=== PATIENT | female | born 1940 | race Caucasian/White ===

== ENCOUNTER → 2016-09-21 | Outpatient (CLI) | payer MEDICARE, BC ==
[~2016-09-21] MED LIST: CALCIUM CITRAT200 MG PO; DICLOFENAC; GLUCOSAMINE & C1 CAP PO; PREFEST PO
== END ==
LOC: MC.RAD 09-20 07:00
DX: Z12.31 Encounter for screening mammogram for malignant neoplasm of breast (principal)

== ENCOUNTER 2021-06-08 09:39 | Emergency (ER) | payer MEDICARE, BC ==
[~2021-06-08] VITALS: Ht 160 cm; Wt 63.6 kg
[2021-06-08 09:50] VITALS: TEMP 98.5
[2021-06-08 10:08] LABS: BASO % 0.1 % (0.0-2.0); EOS % 0.2 % (0.0-4.0); GRAN # 6.3 K/mm3 (1.4-6.5); GRAN % 77.1 % (42.2-75.2); HEMATOCRIT 38.1 % (37.0-47.0); HEMOGLOBIN 12.9 g/dl (12.5-16.0); LYMPH # 0.9 K/mm3 (1.2-3.4); LYMPH % 10.4 % (20.0-51.0); MEAN CELL VOLUME 89 fl (80.0-100.0); MEAN CORPUSCULAR HEMOGLOBIN 30 pg (27-31); MEAN CORPUSCULAR HGB CONC 34 g/dl (33.0-37.0); MEAN PLATELET VOLUME 10.2 fl (7.4-10.4); PLATELET COUNT 268 K/mm3 (130-400); REDCELL DISTRIBUTION WIDTH-CV 12.7 % (11.5-14.5)
[2021-06-08 10:31] LABS: ALBUMIN 3.6 gm/dL (3.4-4.8); ALKALINE PHOSPHATASE 52 U/L (40-150); ANION GAP 13 mmol/L (7-16); AST,SGOT 11 U/L (5-34); BILIRUBIN,TOTAL 0.7 mg/dL (0.2-1.2); BLOOD UREA NITROGEN 14 mg/dL (10-20); CALCIUM 9.3 mg/dL (8.4-10.2); CARBON DIOXIDE 23 mmol/L (23-31); CHLORIDE 104 mmol/L (98-107); GLUCOSE 117 mg/dL (70-99); POTASSIUM 3.6 mmol/L (3.5-4.5); SODIUM 140 mmol/L (136-145); TOTAL PROTEIN 7.6 gm/dL (6.2-8.1)
[2021-06-08 10:32] LABS: ALANINE AMINOTRANSFERASE < 6 U/L (0-55)
[2021-06-08 10:53] LABS: COLLECTION METHOD CLEAN CATCH
[2021-06-08 11:00] LABS: MUCOUS Present (NOT PRESENT); PH 5 (5-8); SQUAMOUS EPITHELIAL 0-2 /hpf (0-10); URINE APPEARANCE Hazy (CLEAR/HAZY); URINE BACTERIA None Seen (NONE SEEN); URINE BILIRUBIN Negative (NEGATIVE); URINE BLOOD Negative (NEGATIVE); URINE COLOR Amber (YELLOW); URINE GLUCOSE Negative (NEGATIVE); URINE KETONE Trace (NEGATIVE); URINE LEUKOCYTE ESTERASE Negative (NEGATIVE); URINE NITRATE Negative (NEGATIVE); URINE PROTEIN(semi-quant) 2+ (NEGATIVE); URINE RBC 0-2 /hpf (0-2)
[2021-06-08 12:05] VITALS: BP 156/65; PULSE 70
[2021-06-22] MEDS ORDERED: ALDACTONE50 MG PO (12:14)
[2021-06-22] MEDS ORDERED: APRESOLINE 25MG25 MG PO (12:15)
[2021-06-22] MEDS ORDERED: ARICEPT 5MG PO (12:16)
[2021-06-22] MEDS ORDERED: COZAAR 50MG50 MG/TAB PO (12:17)
[2021-06-22] MEDS ORDERED: NAMENDA5 MG PO (12:17)
[2021-06-22] MEDS ORDERED: NEURONTIN100 MG/CAP PO (12:18)
== END 2021-06-08 12:05 | disposition home or self-care (01) ==
LOC: COL.ER 09:39
PROVIDERS: Family Medicine
DX: R41.82 Altered mental status, unspecified (principal)

== ENCOUNTER → 2021-06-22 | Outpatient (CLI) | payer MEDICARE, BC ==
[~2021-06-22] VITALS: Ht 160 cm; Wt 57.4 kg
[~2021-06-22] MED LIST changes: +ALDACTONE50 MG PO; +APRESOLINE 25MG25 MG PO; +ARICEPT 5MG PO; +COZAAR 50MG50 MG/TAB PO; +NAMENDA5 MG PO; +NEURONTIN100 MG/CAP PO
[2021-06-22 12:19] VITALS: BP 142/66; PULSE 94; TEMP 98
[2021-06-22 13:45] VITALS: BP 146/82; PULSE 90
== END ==
LOC: COL.RAD 11:56
DX: M47.26 Other spondylosis with radiculopathy, lumbar region (principal)
CPT/HCPCS: J3301

== ENCOUNTER 2021-10-14 09:57 | Inpatient (IN) | payer MEDICARE, BC ==
[~2021-10-14] VITALS: Ht 160 cm; Wt 58.0 kg
[~2021-10-14 09:57] MED LIST changes: +NAMENDA 10MG TA10 MG PO; -NAMENDA5 MG PO
[2021-10-14] MEDS ORDERED: HYGROTON 2525 MG/TAB PO (10:19)
[2021-10-14] MEDS ORDERED: PREDNISONE10 MG PO (10:22)
[2021-10-14] MEDS ORDERED: ARICEPT10 MG PO (10:25)
[2021-10-14] MEDS ORDERED: PRILOSEC 20MG20 MG PO (10:27)
[2021-10-14 10:50] LABS: COLLECTION METHOD CATHETER
[2021-10-14 10:54] LABS: HEMOGLOBIN 11.9 g/dl (12.5-16.0); MEAN CELL VOLUME 94 fl (80.0-100.0); MEAN CORPUSCULAR HEMOGLOBIN 31 pg (27-31); MEAN CORPUSCULAR HGB CONC 33 g/dl (33.0-37.0); MEAN PLATELET VOLUME 9.6 fl (7.4-10.4); PLATELET COUNT 242 K/mm3 (130-400); RED BLOOD COUNT 3.82 M/mm3 (4.10-5.30); REDCELL DISTRIBUTION WIDTH-CV 14.5 % (11.5-14.5)
[2021-10-14 10:56] LABS: MUCOUS Present (NOT PRESENT); PH 6 (5-8); SQUAMOUS EPITHELIAL 0-2 /hpf (0-10); URINE APPEARANCE Clear (CLEAR/HAZY); URINE BACTERIA None Seen /hpf (NONE SEEN); URINE BILIRUBIN Negative (NEGATIVE); URINE BLOOD Negative (NEGATIVE); URINE COLOR Yellow (YELLOW); URINE GLUCOSE Negative (NEGATIVE); URINE KETONE Negative (NEGATIVE); URINE LEUKOCYTE ESTERASE Negative (NEGATIVE); URINE NITRATE Negative (NEGATIVE); URINE PROTEIN(semi-quant) Negative (NEGATIVE); URINE RBC 0-2 /hpf (0-2)
[2021-10-14 10:56] LABS: HEMATOCRIT 35.7 % (37.0-47.0)
[2021-10-14 11:15] LABS: BAND 3 % (0-10); EOSINOPHIL 1 % (0-4); LYMPHOCYTE 8 % (20.0-51.0); MYELOCYTE 1 % (0-0); NEUTROPHILS 83 % (42.0-75.2)
[2021-10-14 11:16] LABS: PLATELET ESTIMATE NORMAL (NORMAL); POLYCHROMASIA 1+
[2021-10-14 12:32] LABS: ALBUMIN 2.7 gm/dL (3.4-4.8); BILIRUBIN,TOTAL 0.4 mg/dL (0.2-1.2); CALCIUM 9.2 mg/dL (8.4-10.2); CREATININE, serum 0.81 mg/dL (0.57-1.11); POTASSIUM 3.6 mmol/L (3.5-4.5); TOTAL PROTEIN 6.4 gm/dL (6.2-8.1)
[2021-10-14 15:49] VITALS: BP 149/53; PULSE 77; TEMP 97.7
[2021-10-14] MEDS ORDERED: VITAMIND3 5000 PO (16:06)
--- NOTE | 2021-10-14 19:10 | NUR ---
Pt arrived to the unit, A/O x4 but very forgetful asking same question several times. Denies any pain. Fall precautions in place. Call light within reach.
[2021-10-14 20:16] VITALS: BP 125/49; PULSE 74; TEMP 98.5
[2021-10-14 23:30] VITALS: BP 123/50; PULSE 68; TEMP 98.3
[2021-10-15 04:28] VITALS: BP 125/55; PULSE 72; TEMP 98
--- NOTE | 2021-10-15 06:35 | NUR ---
ASSESSMENT COMPLETE FOR THIS SHIFT, PT RESTING IN BED WATCHING TV. PT DENIED PAIN, PALPITATIONS, N,V,D, SOB OR DIZZINESS. PT WAS A&O X 4 FOR ME. PT WAS ABLE TO TELL ME HER NAME, , THAT SHE WAS IN THE HOSPITAL AND THE YEAR AND MONTH (SHE DID JOKE AT FIRST ABOUT THE YEAR BEING 2221, THEN SHE SAID SHE WAS KIDDING, THAT IT WAS 2021, AND THAT THE MONTH WAS NOVEMBER, THEN SHE SAID, "NO WAIT...IT SEPTEMBER). PT EXPRESSED NO OTHER NEEDS AT THIS TIME. CALL LIGHT WITHIN REACH.
[2021-10-15 06:38] LABS: HEMOGLOBIN 11.3 g/dl (12.5-16.0); MEAN CELL VOLUME 94 fl (80.0-100.0); MEAN CORPUSCULAR HEMOGLOBIN 31 pg (27-31); MEAN CORPUSCULAR HGB CONC 33 g/dl (33.0-37.0); MEAN PLATELET VOLUME 9.7 fl (7.4-10.4); PLATELET COUNT 249 K/mm3 (130-400); REDCELL DISTRIBUTION WIDTH-CV 14.3 % (11.5-14.5)
[2021-10-15 06:40] LABS: HEMATOCRIT 34.7 % (37.0-47.0)
[2021-10-15 06:50] LABS: CREATININE, serum 0.85 mg/dL (0.57-1.11); POTASSIUM 3.6 mmol/L (3.5-4.5)
[2021-10-15 06:57] LABS: TROPONIN-I 0.022 ng/mL (0.00-0.033)
[2021-10-15 07:15] LABS: BAND 1 % (0-10); EOSINOPHIL 1 % (0-4); LYMPHOCYTE 15 % (20.0-51.0); NEUTROPHILS 77 % (42.0-75.2); PLATELET ESTIMATE NORMAL (NORMAL)
[2021-10-15 07:16] LABS: HYPOCHROMIA 1+
[2021-10-15 07:40] VITALS: BP 130/45; PULSE 77; TEMP 98.1
--- NOTE | 2021-10-15 10:39 | NUR ---
Scheduled medications given. Shift assessment performed. Patient alert, but only paritially oriented. Remainder on neuro assessment WNL. VSS. Patient denies any pain, discomfort, SOA, or further needs at this time. Call light in reach. Fall percautions in place. Tele on. at the bedside.
--- NOTE | 2021-10-15 11:03 | NUR ---
paper and pulp mill worker met with patient to discuss discharge plan. Patient reports that she lives at home with her in [place]. She states that she is able to complete her ADL's on her own and utilizes a rollator walker to assist with mobility. Patient reports that she has no home oxygen needs. Patient currently has home health services established with [facility]. PCP is . She is unsure of what pharmacy she gets her medications from stating " im not the one that picks them up". Patient reports that she does have a DPOA-HC listing her daughter Nadia [phone] as her agent. At this time, the patient is planning on returning home however PT/OT need to eval her first. Discharge plan: Home; pending PT/OT eval
[2021-10-15 11:40] VITALS: BP 127/47; PULSE 86; TEMP 98
--- NOTE | 2021-10-15 13:39 | NUR ---
Iniital visit; Patient thanked Php Developer for looking in on her and offering God's blessings and to keep her in Php Developer's prayers. Patient's and daughter were with her.
[2021-10-15 15:48] VITALS: BP 123/51; PULSE 93; TEMP 98.1
--- NOTE | 2021-10-15 19:29 | NUR ---
Patient has had an uneventful day. VSS. Patient alert, but only paritially oriented. Remainder of neuro checks WNL. Patient denies any pain, discomfort, SOA, or further needs at this time. Call light in reach. Fall percautions in place.
[2021-10-15 20:10] VITALS: BP 113/50; PULSE 91; TEMP 99.2
[2021-10-15 21:50] VITALS: BP 123/57; PULSE 97
[2021-10-16] VITALS (7 sets, daily range): BP systolic 89–125; BP diastolic 39–96; PULSE 78–101; TEMP 97.7–98.7
--- NOTE | 2021-10-16 05:07 | NUR ---
ASSESSMENT COMPLETE FOR THIS SHIFT. PT RESTING IN BED WATCHING TV. PT COMPLAINED OF WEAKNESS. PT WAS INCONTINENT OF BOWEL A COUPLE OF TIMES TONIGHT. PT FELT SHE WAS TOO WEAK TO GET UP TO THE BEDSIDE COMMODE. WE WERE ABLE TO GET HER UP ONCE TONIGHT TO THE BEDSIDE COMMODE. PT DENIED PAIN, PALPITATIONS, SOB, N,V, OR DIZZINESS. PT YELLED OUT FOR HELP A COUPLE OF TIME. PT REMINDED TO USE THE CALL LIGHT. PT EXPRESSED NO OTHER NEEDS AT THIS TIME. CALL LIGHT WITHIN REACH.
[2021-10-16 06:34] LABS: HEMOGLOBIN 11.2 g/dl (12.5-16.0); MEAN CELL VOLUME 94 fl (80.0-100.0); MEAN CORPUSCULAR HEMOGLOBIN 31 pg (27-31); MEAN CORPUSCULAR HGB CONC 33 g/dl (33.0-37.0); MEAN PLATELET VOLUME 9.8 fl (7.4-10.4); PLATELET COUNT 281 K/mm3 (130-400); RED BLOOD COUNT 3.62 M/mm3 (4.10-5.30); REDCELL DISTRIBUTION WIDTH-CV 14.3 % (11.5-14.5)
[2021-10-16 06:47] LABS: CREATININE, serum 1.05 mg/dL (0.57-1.11); MAGNESIUM 1.7 mg/dL (1.6-2.6); POTASSIUM 4.1 mmol/L (3.5-4.5)
[2021-10-16 07:53] LABS: BAND 6 % (0-10); LYMPHOCYTE 14 % (20.0-51.0); METAMYELOCYTE 1 % (0-0); NEUTROPHILS 73 % (42.0-75.2)
[2021-10-16 07:54] LABS: PLATELET ESTIMATE NORMAL (NORMAL)
--- NOTE | 2021-10-16 11:46 | NUR ---
Shift assessment performed. Scheduled medications given. Patient alert, but only partially oriented. BP medications held due to low BP. Provider aware. Patient currently on RA. Denies any pain, discomfort, SOA, or further needs at this time. Call light in reach. Tele on. KAUSHIK hose in use. Fall percaution in place. Family at the bedside.
--- NOTE | 2021-10-16 14:30 | NUR ---
Social Work student faxed SNF referrals to Katie at [facility], Thony at [facility], and Sherrill at [facility].
--- NOTE | 2021-10-16 14:43 | NUR ---
lasting floorworker met with patient to discuss PT/OT recommending SNF before returing home. Patient verbalizes that she would really like for me to reach out to her daughter Nadai to discuss the differenet options in facilities. This SW attempted to reach [facility] and message left. Clinical referrals faxed to [facility], [facility] and [facility]. Discharge plan: SNf; referrals pending
--- NOTE | 2021-10-16 19:11 | NUR ---
Patient has had an uneventful day. VSS. Patinet Alert and partially oriented. Call light in reach. Fall percautions in place. Patient denies any pain, discomfort, SOA, or further needs at this time. Call light in reach.
[2021-10-17 00:17] VITALS: BP 115/50; PULSE 66; TEMP 97.6
[2021-10-17 03:39] VITALS: BP 113/46; PULSE 72; TEMP 97.4
[2021-10-17 07:02] LABS: MEAN CELL VOLUME 94 fl (80.0-100.0); MEAN CORPUSCULAR HEMOGLOBIN 31 pg (27-31); MEAN CORPUSCULAR HGB CONC 33 g/dl (33.0-37.0); MEAN PLATELET VOLUME 9.7 fl (7.4-10.4); PLATELET COUNT 286 K/mm3 (130-400); RED BLOOD COUNT 3.54 M/mm3 (4.10-5.30); REDCELL DISTRIBUTION WIDTH-CV 14.1 % (11.5-14.5)
[2021-10-17 07:08] LABS: HEMATOCRIT 33.3 % (37.0-47.0)
[2021-10-17 07:18] LABS: CREATININE, serum 1.03 mg/dL (0.57-1.11); MAGNESIUM 1.9 mg/dL (1.6-2.6); POTASSIUM 4.1 mmol/L (3.5-4.5)
--- NOTE | 2021-10-17 07:37 | NUR ---
ASSESSMENT COMPLETE FOR THIS SHIFT. PT RESTING IN BED NAPPING. PT DENIED PAIN, PALPITATIONS, SOB, N,V,D OR DIZZINESS. PT HAD AN UNEVENTFUL NIGHT. PT EXPRESSED NO OTHER NEEDS AT THIS TIME. CALL LIGHT WITHIN REACH.
[2021-10-17 07:41] LABS: BAND 3 % (0-10); BASOPHIL 1 % (0-2); EOSINOPHIL 1 % (0-4)
[2021-10-17 07:42] LABS: LYMPHOCYTE 18 % (20.0-51.0); PLATELET ESTIMATE NORMAL (NORMAL)
[2021-10-17 07:43] LABS: NEUTROPHILS 71 % (42.0-75.2)
[2021-10-17 08:20] VITALS: BP 123/50; PULSE 75; TEMP 97.6
--- NOTE | 2021-10-17 08:57 | NUR ---
PT RESTING IN BED. MORNING MEDICATIONS GIVEN. SHIFT ASSESSMENT COMPLETED. DAUGHTER AT BEDSIDE. PT DENIES ANY PAIN. HELPED PT TO BEDSIDE COMMODE WITH PHYSICAL THERAPY, X2 MAX ASSIST. WILL CONTINUE TO MONITOR.
[2021-10-17 11:09] VITALS: BP 114/52; PULSE 69; TEMP 97.5
[2021-10-17 15:59] VITALS: BP 109/55; PULSE 70; TEMP 97.4
[2021-10-17 19:44] VITALS: BP 117/51; PULSE 79; TEMP 97.9
[2021-10-18] VITALS (7 sets, daily range): BP systolic 96–128; BP diastolic 49–66; PULSE 58–79; TEMP 97.7–98.4
--- NOTE | 2021-10-18 04:56 | NUR ---
ASSESSMENT COMPLETE FOR THIS SHIFT. PT RESTING IN BED NAPPING WITH THE TV ON. PT DENIED PAIN, PALPITATIONS, SOB, N,V,D OR DIZZINESS. PT SLEPT MOST OF THE SHIFT. PT HAD AN UNEVENTFUL NIGHT. PT EXPRESSED NO OTHER NEEDS AT THIS TIME. CALL LIGHT WITHIN REACH.
[2021-10-18 06:46] LABS: HEMATOCRIT 32.1 % (37.0-47.0); HEMOGLOBIN 10.7 g/dl (12.5-16.0); MEAN CELL VOLUME 93 fl (80.0-100.0); MEAN CORPUSCULAR HEMOGLOBIN 31 pg (27-31); MEAN CORPUSCULAR HGB CONC 33 g/dl (33.0-37.0); MEAN PLATELET VOLUME 9.7 fl (7.4-10.4); PLATELET COUNT 291 K/mm3 (130-400); RED BLOOD COUNT 3.47 M/mm3 (4.10-5.30); REDCELL DISTRIBUTION WIDTH-CV 13.9 % (11.5-14.5)
[2021-10-18 07:06] LABS: CALCIUM 8.8 mg/dL (8.4-10.2); CREATININE, serum 0.86 mg/dL (0.57-1.11); MAGNESIUM 1.8 mg/dL (1.6-2.6); POTASSIUM 3.8 mmol/L (3.5-4.5)
[2021-10-18 07:20] LABS: BAND 5 % (0-10); LYMPHOCYTE 16 % (20.0-51.0); METAMYELOCYTE 3 % (0-0); MYELOCYTE 1 % (0-0); NEUTROPHILS 68 % (42.0-75.2); PLATELET ESTIMATE NORMAL (NORMAL)
--- NOTE | 2021-10-18 08:00 | NUR ---
Patient resting in bed, easily awakened with verbal command. A&Ox4. VSS. Denies pain and discomfort. IV CDI. Nurse assisted with repositioning in bed. Call light within reach. Bed alarm on
--- NOTE | 2021-10-18 14:47 | NUR ---
PT RESTING IN BED, HOB ELEVATED, FAMILY IS @ BEDSIDE. PT IS PLEASANT A&O X3 @ THIS TIME BUT STATES THAT SHE DID HAVE SOME PRIOR CONFUSION. PT SWALLOWS PILLS WITH NO PROBLEMS, REQUESTS JERALDO FOR A SNACK. PT ET FAMILY DENY OTHER NEEDS. RESPIRATIONS UNLABORED. CALL LIGHT WITHIN REACH.
--- NOTE | 2021-10-18 16:19 | NUR ---
PT ASSISTED TO USE BSC @ THIS TIME. PT IS WEAK ET REQUIRES FREQUENT QUEING TO PIVOT TRANSFER WITH 1 ASSIST, GAITBELT ET WALKER. PT ASSISTED BACK INTO BED. BED ALARM IS ON. CALL LIGHT WITHIN REACH.
[2021-10-19 04:25] VITALS: BP 131/54; PULSE 62; TEMP 97.5
--- NOTE | 2021-10-19 05:44 | NUR ---
ASSESSMENT COMPLETE FOR THIS SHIFT. PT RESTING IN BED WATCHING TV. PT IN [employer] SPIRITS, TALKING ABOUT HER FAMILY COMING IN FROM OUT OF TOWN. PT DENIED PAIN, PALPITATIONS, SOB, N,V,D OR DIZZINESS. NEURO'S STABLE WITH SOME IMPROVEMENT. PT EXPRESSED NO OTHER NEEDS AT THIS TIME. CALL LIGHT WITHIN REACH.
[2021-10-19 06:02] LABS: HEMOGLOBIN 10.5 g/dl (12.5-16.0); MEAN CELL VOLUME 94 fl (80.0-100.0); MEAN CORPUSCULAR HEMOGLOBIN 31 pg (27-31); MEAN CORPUSCULAR HGB CONC 33 g/dl (33.0-37.0); MEAN PLATELET VOLUME 9.6 fl (7.4-10.4); PLATELET COUNT 276 K/mm3 (130-400); RED BLOOD COUNT 3.41 M/mm3 (4.10-5.30); REDCELL DISTRIBUTION WIDTH-CV 13.9 % (11.5-14.5)
[2021-10-19 06:09] LABS: HEMATOCRIT 32.2 % (37.0-47.0)
[2021-10-19 06:18] LABS: CALCIUM 8.8 mg/dL (8.4-10.2); CREATININE, serum 0.96 mg/dL (0.57-1.11)
[2021-10-19 06:49] LABS: BAND 3 % (0-10); BASOPHIL 1 % (0-2); LYMPHOCYTE 15 % (20.0-51.0); METAMYELOCYTE 1 % (0-0); MYELOCYTE 4 % (0-0); NEUTROPHILS 68 % (42.0-75.2)
[2021-10-19 06:50] LABS: HYPOCHROMIA 1+; PLATELET ESTIMATE NORMAL (NORMAL)
[2021-10-19 07:29] VITALS: BP 115/44; PULSE 63; TEMP 98.1
--- NOTE | 2021-10-19 08:53 | NUR ---
PT RESTING IN BED. MORNING MEDICATIONS GIVEN. SHIFT ASSESSMENT COMPLETED. DENIES ANY PAIN OR NEEDS. UPDATED PT ON POC. PT PARTIALLY ORIENTED. WILL CONTINUE TO MONITOR.
--- NOTE | 2021-10-19 10:10 | NUR ---
WAS INFORMED THAT BLADDER SCAN SHOWED NO URINE AFTER PT GOT UP TO COMMODE AND VOIDED 400ML.
[2021-10-19 16:01] VITALS: BP 133/57; PULSE 77; TEMP 97.9
--- NOTE | 2021-10-19 16:39 | NUR ---
Teletype Technician attended clinical rounds with the team and patient to have MRI today. SW met with patient and her daughter Nadia, step son Tobias, and Kamlesh. SW reviewed referrals that were sent to local SNFs. Patient does not want [facility]. Patient's family would like to wait on results from patient's imaging before deciding on rehab. Sherrill [facility] contacted LEONARD and advised they cannot accept. Thony at [facility] still reviewing referral. Discharge Plan: Pending SNF referral
[2021-10-19 20:19] VITALS: BP 121/59; PULSE 68; TEMP 97.5
--- NOTE | 2021-10-19 22:59 | NUR ---
PATIENT ASLEEP ON ROOM ENTRY. EASILY AWAKENED. PARTIALLY ORIENTED. MEDS ADMINISTERED PER EMAR. DENIES PAIN. NC WNL. TELE SHOWING NSR. CURRENTLY RESTING IN BED. CALL LIGHT IN REACH.
[2021-10-19 23:18] VITALS: BP 124/51; PULSE 58; TEMP 97.9
[2021-10-20 04:26] VITALS: BP 135/57; PULSE 55; TEMP 97.5
--- NOTE | 2021-10-20 04:33 | NUR ---
PATIENT HAS NOT URINATED ALL DAY AND ALL WRAPPER COUNTER. BRIEF WAS DRY. BLADDER SCAN SHOWED 403 MLS IN BLADDER. PATIENT DENIES URGENCY OR FEELINGS OF FULLNESS. ASSISTED TO BATHROOM WITH X1 ASSIST AND WALKER AND VOIDED 300 MLS OF DARK YELLOW URINE.
[2021-10-20 06:00] LABS: HEMOGLOBIN 10.6 g/dl (12.5-16.0); MEAN CELL VOLUME 93 fl (80.0-100.0); MEAN CORPUSCULAR HEMOGLOBIN 31 pg (27-31); MEAN CORPUSCULAR HGB CONC 33 g/dl (33.0-37.0); MEAN PLATELET VOLUME 9.6 fl (7.4-10.4); PLATELET COUNT 289 K/mm3 (130-400); RED BLOOD COUNT 3.42 M/mm3 (4.10-5.30); REDCELL DISTRIBUTION WIDTH-CV 13.9 % (11.5-14.5)
[2021-10-20 06:05] LABS: HEMATOCRIT 31.7 % (37.0-47.0)
[2021-10-20 06:23] LABS: CALCIUM 8.9 mg/dL (8.4-10.2); CREATININE, serum 0.9 mg/dL (0.57-1.11); POTASSIUM 3.6 mmol/L (3.5-4.5)
[2021-10-20 07:05] LABS: BAND 2 % (0-10); EOSINOPHIL 1 % (0-4); LYMPHOCYTE 21 % (20.0-51.0); METAMYELOCYTE 1 % (0-0); NEUTROPHILS 68 % (42.0-75.2); PLATELET ESTIMATE NORMAL (NORMAL)
--- NOTE | 2021-10-20 07:19 | NUR ---
WAS CONTACTED BY SEN PEREZ AND INFORMED THAT DR. MENDEZ ORDERED AN ADDITIONAL CERVICAL MRI W AND W/O CONTRAST. SEN STATES SHE SPOKE WITH THE RADIOLOGIST YESTERDAY AFTER COMPLETING THE LIMITED SCANS AND THE RADIOLOGIST FEELS IT UNECESSARY TO USE CONTRAST BECAUSE THEY WERE ABLE TO VISUALIZE EVERYTHING ADEQUATELY AND WROTE A DETAILED REPORT. WILL HOLD OFF ON THE MRI AT THIS TIME.
[2021-10-20 07:28] VITALS: BP 127/49; PULSE 66; TEMP 97.7
--- NOTE | 2021-10-20 10:28 | NUR ---
PT SITTING UP IN BED, FAMILY AT BEDSIDE. MORNING MEDICATIONS GIVEN. SHIFT ASSESSMENT COMPLETED. PT DENIES ANY PAIN, STATES SHE FEELS THE SAME. PLANNING FOR A LUMBAR PUNCTURE THIS AM. PT DENIES HAVING A BM IN A FEW DAYS, STATES THIS IS NORMAL FOR HER. DENIES ABD PAIN, SOFT TO PALPATION. WILL CONTINUE TO MONITOR.
--- NOTE | 2021-10-20 11:57 | NUR ---
Phone call made to Thony at [facility] who states that as of yesterday, clinically the patient looked good for acceptance as SNF but he still needed to check into the patients insurance and review todays updates. Contact made with PA who feels the patient could discharge in the next 24 hrs. Patients clinical updates faxed to Thony with notification of possible discharge in the next 24 hours.
[2021-10-20 12:03] LABS: CSF APPEARANCE CLEAR; CSF COLOR COLORLESS
--- NOTE | 2021-10-20 12:03 | NUR ---
PT RETURNED FROM LP AT THIS TIME, IS COMPLETING FLAT TIME.
[2021-10-20 12:56] LABS: GLUCOSE,CSF 53 mg/dL (40-70)
--- NOTE | 2021-10-20 13:08 | NUR ---
Thony at [facility] advised they can accept patient.
[2021-10-20 13:11] LABS: CSF MONONUCLEAR 38 % (70-100); CSF POLYMORPHONUCLEAR 63 % (0-6); CSF RBC 914 /mm3 (0-0)
[2021-10-20 15:57] VITALS: BP 122/61; PULSE 70; TEMP 98.3
[2021-10-20 20:11] VITALS: BP 121/54; PULSE 73; TEMP 98.2
--- NOTE | 2021-10-20 21:52 | NUR ---
Patient assessed around 2009. Alert and oriented, and able to make needs known. Denies having pain and discomfort at this time. Peripheral INT to left forearm. LS CTA. HRR. Telemetry in place. BSAx4. No edema. Amor hose on. Redness to bottom. Bandaid to LP site CDI. Voices no questions, needs, or concerns at this time. In bed with call light within reach. Bed alarm on.
[2021-10-20 23:46] VITALS: BP 130/48; PULSE 58; TEMP 97.5
[2021-10-21] VITALS (12 sets, daily range): BP systolic 109–148; BP diastolic 41–86; PULSE 57–72; TEMP 97.5–98.3
--- NOTE | 2021-10-21 05:36 | NUR ---
Patient has denied pain and discomfort this shift. Voice no questions, needs, or concerns at this time. In bed wtih call light within reach. Bed alarm on.
[2021-10-21 06:04] LABS: HEMOGLOBIN 10.3 g/dl (12.5-16.0); MEAN CELL VOLUME 95 fl (80.0-100.0); MEAN CORPUSCULAR HEMOGLOBIN 31 pg (27-31); MEAN CORPUSCULAR HGB CONC 32 g/dl (33.0-37.0); MEAN PLATELET VOLUME 9.6 fl (7.4-10.4); PLATELET COUNT 303 K/mm3 (130-400); RED BLOOD COUNT 3.36 M/mm3 (4.10-5.30); REDCELL DISTRIBUTION WIDTH-CV 13.9 % (11.5-14.5)
[2021-10-21 06:08] LABS: HEMATOCRIT 31.8 % (37.0-47.0)
[2021-10-21 06:35] LABS: CALCIUM 8.5 mg/dL (8.4-10.2); CREATININE, serum 0.82 mg/dL (0.57-1.11); POTASSIUM 3.5 mmol/L (3.5-4.5)
[2021-10-21 06:45] LABS: BAND 4 % (0-10); LYMPHOCYTE 26 % (20.0-51.0); MYELOCYTE 1 % (0-0); NEUTROPHILS 66 % (42.0-75.2)
[2021-10-21 06:46] LABS: PLATELET ESTIMATE NORMAL (NORMAL)
--- NOTE | 2021-10-21 08:47 | NUR ---
PT RESTING IN BED. MORNING MEDICATIONS GIVEN. SHIFT ASSESSMENT COMPLETED. FAMILY AT BEDSIDE. PT DENIES ANY PAIN OR NEEDS. WILL CONTINUE TO MONITOR.
[2021-10-21 10:32] LABS: A/G RATIO (PEP) 0.84 (()); BETA GLOBULINS (PEP) 0.8 g/dL (0.7-1.2)
--- NOTE | 2021-10-21 13:48 | NUR ---
Farm Boss met with patient and her family to review discharge plan. Patient is agreeable to SNF placement at [facility]. SW collaborated with Hospitalist who advised patient will be here five more days to start IVIG. LEONARD contacted Thony at [facility] and faxed clinical updates. Discharge Plan: [facility] SNF
--- NOTE | 2021-10-21 19:45 | NUR ---
Initial shift assessment done- IVIG completed now-L/FA INT flushes well - Pt alert/partially oriented, knows year- not month or day,, very pleasant-states she just cannot remember certain things-follows directions, Tele on NSR, denies pain/SOB,
[2021-10-22] VITALS (16 sets, daily range): BP systolic 121–156; BP diastolic 45–67; PULSE 52–69; TEMP 97.5–98
--- NOTE | 2021-10-22 05:17 | NUR ---
Up to bathroom with walker and assist- slow but steady, weak, voiding well- states feels so weak, VSS
--- NOTE | 2021-10-22 10:02 | NUR ---
Patient working w/ PT upon entering the room. Patient did well and walked in the hallway a bit. Patient's gait is very slow and shuffled. Patient is forgetful and will admit when she does not know something. Patient currently sitting in the recliner. Chair alarm on. Call light is w/in reach.
--- NOTE | 2021-10-22 12:27 | NUR ---
Wood Model Builder faxed clinical updates to Thony at [facility].
--- NOTE | 2021-10-22 14:47 | NUR ---
Patient's IVIG started at 1310. Patient tolerating this well. VSS, mildly sleepy from IV benadryl administered prior to initiation of IVIG. Patient's daughter is at the bedside.
--- NOTE | 2021-10-22 20:15 | NUR ---
Initial shift assessment done- somewhat of a flat affect, answers questions, forgetful of month, day- does know she is in the hospital- talks in depth about her family, tele on, VSS, bed alarm on- call light in reach
[2021-10-23] VITALS (13 sets, daily range): BP systolic 129–151; BP diastolic 48–69; PULSE 48–76; TEMP 97.4–98
--- NOTE | 2021-10-23 05:34 | NUR ---
Quiet night- has been resting well all night- VSS.
[2021-10-23 05:57] LABS: MEAN CELL VOLUME 95 fl (80.0-100.0); MEAN CORPUSCULAR HGB CONC 32 g/dl (33.0-37.0); PLATELET COUNT 309 K/mm3 (130-400); RED BLOOD COUNT 3.03 M/mm3 (4.10-5.30); REDCELL DISTRIBUTION WIDTH-CV 13.9 % (11.5-14.5)
[2021-10-23 05:59] LABS: HEMATOCRIT 28.7 % (37.0-47.0); HEMOGLOBIN 9.3 g/dl (12.5-16.0); MEAN CORPUSCULAR HEMOGLOBIN 31 pg (27-31)
[2021-10-23 06:14] LABS: CALCIUM 8.3 mg/dL (8.4-10.2); CREATININE, serum 0.87 mg/dL (0.57-1.11)
[2021-10-23 06:22] LABS: BAND 3 % (0-10); HYPOCHROMIA 1+; LYMPHOCYTE 15 % (20.0-51.0); METAMYELOCYTE 1 % (0-0); NEUTROPHILS 76 % (42.0-75.2); PLATELET ESTIMATE NORMAL (NORMAL)
--- NOTE | 2021-10-23 08:46 | NUR ---
Patient A&Ox3, correctly stated /name, year/day, and location. Kinga from [facility] currently in the room preparing to place a PICC. Patient denies any SOB or pain. Patient's family at the bedside, asked to step out for PICC placement. Call light w/in reach and bed alarm on for patient safety. Patient encouraged to use call light if any needs arise.
--- NOTE | 2021-10-23 14:24 | NUR ---
PICC line placed into right upper arm. Patient denies any pain in the area since placement. IVIG started, this RN will remain in the room for the first 15mins that the medication is infusing.
--- NOTE | 2021-10-23 14:53 | NUR ---
Athletic Agent faxed clinical updates to [facility].
--- NOTE | 2021-10-23 22:49 | NUR ---
Patient assessed around 1954. Denies having pain and discomfort. Single lume PICC to NICOLE. Denies SOB and dyspnea. LS CTA. HRR. Telemetry in place. BSAx4. Abdomen soft and non-tender. 1 assist with walker. Voices no questions, needs, or concerns at this time. In bed with call light within reach. High fall risk precautions in place. Bed alarm on.
[2021-10-24] VITALS (13 sets, daily range): BP systolic 124–166; BP diastolic 52–99; PULSE 58–72; TEMP 97.9–98.6
--- NOTE | 2021-10-24 06:00 | NUR ---
Patient denies having pain and discomfort this shift. Has voiced no questions, needs, or concerns at this time. In bed with call light within reach. Bed alarm on.
[2021-10-24 06:26] LABS: MEAN CELL VOLUME 97 fl (80.0-100.0); MEAN CORPUSCULAR HGB CONC 32 g/dl (33.0-37.0); PLATELET COUNT 273 K/mm3 (130-400); RED BLOOD COUNT 2.97 M/mm3 (4.10-5.30); REDCELL DISTRIBUTION WIDTH-CV 14.3 % (11.5-14.5)
[2021-10-24 06:35] LABS: CALCIUM 8.3 mg/dL (8.4-10.2); CREATININE, serum 0.78 mg/dL (0.57-1.11); POTASSIUM 3.9 mmol/L (3.5-4.5)
[2021-10-24 06:44] LABS: HEMATOCRIT 28.8 % (37.0-47.0); HEMOGLOBIN 9.3 g/dl (12.5-16.0); MEAN CORPUSCULAR HEMOGLOBIN 31 pg (27-31)
[2021-10-24 07:07] LABS: LYMPHOCYTE 17 % (20.0-51.0); NEUTROPHILS 71 % (42.0-75.2); NUCLEATED RED BLOOD CELL 1 (0-6)
--- NOTE | 2021-10-24 07:09 | NUR ---
INTRODUCED SELF TO PT. NO NEEDS AT THIS TIME.
--- NOTE | 2021-10-24 10:22 | NUR ---
PT FAMILY PRESENT DURING ASSESSMENT AND MED PASS. ASSESSMENT COMPLETED TO BEST OF ABILITY. NEURO CHECK PERFORMED TO BEST OF ABILITY. PT TAKEN FOR PT ABLE TO WALK HALLWAY. NOTED EXTRA HEART SOUND DURING ASSESSMEN, NOTIFIED CHARGE NURSE FOR RECHECK.
--- NOTE | 2021-10-24 11:46 | NUR ---
PT SBP ELEVATED, BLOOD PRESSURE TAKEN AFTER AMBULATION TO RESTROOM AND BACK. NO PAIN, SOA, DIZZINESS NOTED. WILL RECHECK AT LATER TIME.
--- NOTE | 2021-10-24 11:52 | NUR ---
NOTED REDDENED, OPENED AREA APPROXIMATELY QUARTER SIZED IN-BETWEEN GLUTEAL FOLD ON LEFT SIDE. VERIFIED WITH LEATHA LOCKE MOISTURE RELATED. APPLIED BARRIER CREAM AND AQUAFOAM PAD FOR PROTECTION.
--- NOTE | 2021-10-24 14:54 | NUR ---
STARTED IVIG, VITALS TO BE DOCUMENTED Q15MIN, DYNAMAP SET TO INTERVAL TIMING.
--- NOTE | 2021-10-24 15:30 | NUR ---
INCREASED IVIG TO 36ML/HR. PT TOLERATED WELL.
--- NOTE | 2021-10-24 15:45 | NUR ---
Increased to 72ml/hr.
--- NOTE | 2021-10-24 16:15 | NUR ---
increased IvIg to 108
--- NOTE | 2021-10-24 16:49 | NUR ---
INCREASED IVIG TO 144ML/HR
--- NOTE | 2021-10-24 17:36 | NUR ---
IV IG FINISHED AT 1735
--- NOTE | 2021-10-24 17:39 | NUR ---
PT CONTINUES ON PLAN OF CARE. REPORTED NUMBNESS IN FINGERS, NOTIFIED CHARGE NURSE AND REASSESSED DULL/SHARP SENSATION ABLE TO FEEL IN ALL FINGERS. PULSES 2+ BILATERALLY IN ALL EXTREMITIES, CAP REFILL <3S. PT HAD WRISTS ON TABLE, CHARGE NURSE INSTRUCTED TO LEAVE IN LAP FOR TIME AND RE-EVALUATE. PT MOVED ON RIGHT SIDE WITH PILLOW TO ALLEVIATE PRESSURE.
--- NOTE | 2021-10-24 17:40 | NUR ---
OFFERED SEVERAL TIMES FOR BATHROOM PRIVILEGES, DENIED BY PT.
--- NOTE | 2021-10-24 18:02 | NUR ---
TRAY NOT WITH PT AT TIME OF ASSESSMENT.
--- NOTE | 2021-10-24 23:16 | NUR ---
Pt alert and oriented this evening, resting in bed. Pt appears to be forgetful, but is able to answer orientation questions correctly. Denies pain. Continuing to assess neuro checks q4h. Shift assessment completed. Medications administered per orders and education provided. Pt tolerated PO pills well with water. PICC line noted in DAPHNE, flushes well. DAPHNE restriction enforced. Non-pitting edema noted in BLE. Pt wears compression stockings on BLE. Lungs are clear/diminished/ Pt denies chest pain/SOB. Noted small moisture breakdown on sacral area. Continuing to turn pt every 2 hours and apply barrier cream as needed. VS stable. HR runs between NSR and sinus lloyd. Pt reports no questions at this time, will continue to monitor.
[2021-10-25] VITALS (13 sets, daily range): BP systolic 115–148; BP diastolic 45–59; PULSE 51–84; TEMP 97.9–98.3
--- NOTE | 2021-10-25 05:06 | NUR ---
No adverse events overnight. Pt continues to deny pain. Denies SOB. VS stable. Continuing to turn every 2 hours. Neuro checks continue every 4 hours. Pt remains alert and oriented when awake, but forgetful. Resting now. Pt reports no questions, will continue to monitor.
[2021-10-25 06:53] LABS: MEAN CELL VOLUME 94 fl (80.0-100.0); MEAN CORPUSCULAR HGB CONC 33 g/dl (33.0-37.0); PLATELET COUNT 335 K/mm3 (130-400); RED BLOOD COUNT 2.96 M/mm3 (4.10-5.30); REDCELL DISTRIBUTION WIDTH-CV 14.8 % (11.5-14.5)
[2021-10-25 06:59] LABS: CALCIUM 8.4 mg/dL (8.4-10.2); CREATININE, serum 0.77 mg/dL (0.57-1.11); POTASSIUM 4.1 mmol/L (3.5-4.5)
[2021-10-25 07:24] LABS: HEMATOCRIT 27.7 % (37.0-47.0); HEMOGLOBIN 9.2 g/dl (12.5-16.0); MEAN CORPUSCULAR HEMOGLOBIN 31 pg (27-31)
--- NOTE | 2021-10-25 08:21 | NUR ---
Patient sitting in bed, eating breakfast upon entering the room. Patient is A&Ox3; Correctly states full name, month, and location. Bed alarm on for patient safety. Patient has call light w/in reach and has been encouraged to call if any needs arise. Patient denies any concerns this morning.
[2021-10-25 08:49] LABS: LYMPHOCYTE 18 % (20.0-51.0); NEUTROPHILS 78 % (42.0-75.2)
[2021-10-25 08:50] LABS: PLATELET ESTIMATE NORMAL (NORMAL)
--- NOTE | 2021-10-25 18:29 | NUR ---
Day 5 of IVIG administered. Patient tolerated this well. VSS during infusion. This RN stayed in the room during the first 15mins of the infusion. Family has remained at the bedside all day. Patient walked with PT and did well.
--- NOTE | 2021-10-25 23:43 | NUR ---
Pt alert and oriented this evening, forgetful, but able to answer all oriented questions correctly. Denies pain. Up to void with assistance. Applied barrier cream to sacral area and repositioned pt with assistance. Shift assessment performed. Medications administered per orders and education provided. Pt tolerated PO pills well. Noted small area on upper sacrum that is peeling. Applied barrier cream and left open to air. VS stable. Pt remains on room air. HR is running sinus lloyd currently. Pt reports no questions at this time, will continue to monitor.
[2021-10-26 00:18] VITALS: BP 131/60; PULSE 52; TEMP 98.2
[2021-10-26 04:28] VITALS: BP 139/62; PULSE 58; TEMP 98.2
--- NOTE | 2021-10-26 04:56 | NUR ---
No adverse events overnight. Pt alert and oriented when awake, resting currently. Continued to deny pain overnight. No SOB noted. VS stable. Pt ran sinus lloyd overnight in upper 50's. Remains on room air, satting WNL. Tolerating PO. Pt reports no questions at this time, will continue to monitor.
[2021-10-26 08:04] VITALS: BP 132/56; PULSE 62; TEMP 97.7
[2021-10-26] MEDS ORDERED: ELIQUIS 5MG PO (10:06)
[2021-10-26 11:46] VITALS: BP 123/55; PULSE 56; TEMP 97.7
--- NOTE | 2021-10-26 13:46 | NUR ---
The clinical team is ready to discharge the patient today. LEONARD notified and faxed updates to Thony at [facility]. LEONARD met with the patient and her daughter, Nadia, to update. The patient and her daughter are in agreement to going to [facility]. LEONARD presented and read the IM form outloud to Nadia. Nadia verbalized understanding and of discharge today and signed the form. LEONARD provided her with a copy. The patient is to discharge today, 10/26, to [facility] for a skilled stay[place] [id number], via [facility]. LEONARD informed the patient RN and her step-son of the time. LEONARD attempted to notify Nadia of the time. LEONARD left her a voicemail. No additional needs at this time.
--- NOTE | 2021-10-26 14:57 | NUR ---
Patient is transferring to [facility], I have called and given report to receiving nurse ARTEMIO Ferguson removed PICC line prior to discharge, family present at time of transfer
== END 2021-10-26 14:00 | DRG 176 ==
LOC: COL.ER 09:57 → MEDICAL 13:47
PROVIDERS: Family Medicine; Nurse Practitioner Family; Physician Assistant; Psychiatry & Neurology Neurology; ADMIT Family Medicine
PROC: 02HV33Z Insertion of Infusion Device into Superior Vena Cava, Percutaneous Approach (ICD-10-PCS; principal; 2021-10-23)
DX: I26.99 Other pulmonary embolism without acute cor pulmonale (principal); I82.4Z1 Acute embolism and thrombosis of unspecified deep veins of right distal lower extremity; G61.81 Chronic inflammatory demyelinating polyneuritis; K21.9 Gastro-esophageal reflux disease without esophagitis; I10 Essential (primary) hypertension; D64.9 Anemia, unspecified; G60.8 Other hereditary and idiopathic neuropathies; M50.30 Other cervical disc degeneration, unspecified cervical region; M51.36 Other intervertebral disc degeneration, lumbar region; G56.02 Carpal tunnel syndrome, left upper limb; Z20.822 Contact with and (suspected) exposure to COVID-19; G30.9 Alzheimer's disease, unspecified; F02.80 Dementia in other diseases classified elsewhere, unspecified severity, without behavioral disturbance, psychotic disturbance, mood disturbance, and anxiety; D72.829 Elevated white blood cell count, unspecified; W18.30XA Fall on same level, unspecified, initial encounter; Z79.52 Long term (current) use of systemic steroids; Z86.73 Personal history of transient ischemic attack (TIA), and cerebral infarction without residual deficits; Z88.2 Allergy status to sulfonamides
CPT/HCPCS: 99223-AI; 99232-AI; 99233-AI; 99239; A9575; C1751; J1200; J1569; J1650; J2930; J7512; Q9967

== ENCOUNTER 2022-02-09 07:44 | Outpatient (CLI) | payer MEDICARE, BC ==
[2022-02-09] VITALS (9 sets, daily range): BP systolic 105–168; BP diastolic 51–69; PULSE 49–65; TEMP 98.5
[~2022-02-09] VITALS: Ht 160 cm; Wt 57.6 kg
[~2022-02-09 07:44] MED LIST changes: +ARICEPT10 MG PO; +ELIQUIS 5MG PO; +HYGROTON 2525 MG/TAB PO; +PREDNISONE10 MG PO; +PRILOSEC 20MG20 MG PO; +VITAMIND3 5000 PO
[2022-02-09] MEDS ORDERED: ELIQUIS 5MG PO (09:54)
[2022-02-09] MEDS ORDERED: COZAAR 50MG50 MG/TAB PO (09:56)
[2022-02-09] MEDS ORDERED: LEXAPRO 5MG5 MG PO (09:57)
[2022-02-09] MEDS ORDERED: TYLENOL 325MG325 MG PO (09:57)
== END 2022-02-09 13:30 | disposition home or self-care (01) ==
LOC: EUO 07:44
DX: G61.81 Chronic inflammatory demyelinating polyneuritis (principal)
CPT/HCPCS: J1200; J1569; J2930

== ENCOUNTER 2022-03-11 07:32 | Outpatient (CLI) | payer MEDICARE, BC ==
[2022-03-11] VITALS (9 sets, daily range): BP systolic 107–155; BP diastolic 44–59; PULSE 57–68; TEMP 98.2
[~2022-03-11] VITALS: Ht 160 cm; Wt 58.6 kg
[~2022-03-11 07:32] MED LIST changes: +LEXAPRO 5MG5 MG PO; +TYLENOL 325MG325 MG PO
--- NOTE | 2022-03-11 12:30 | NUR ---
Pt slept through majority of infusion. She did wake easily to stimuli. She was assisted up to toilet with walker and x1 assist at 1100. She ate brunch tray with assistance of daughter. Upon being woken at end of infusion, pt shows increased confusion. Daughter reports similar experience following last IGG infusion and she feels it is due to benadryl. She states pt improved after returning to her halfway room and resting after last IGG infusion. She states she feels comfortable transporting pt back to halfway as previously planned and getting her settled back in her room. Pt requires x1 assist with transfers from bed, to wheelchair, and then into daughter's car. Pt hallucinating and confused at times, stating she does not recognize her daughter and asking "Why are you all standing on your heads? Why are you upside down?" This nurse will reach out to Dr Huertas's office with report of pt's confusion, possibly related to benadryl. Daughter states she will also speak with halfway staff regarding increased confusion. Nurse communication form also sent back with daughter.
--- NOTE | 2022-03-11 16:05 | NUR ---
Message left at Dr Huertas's office regarding pt's confusion today.
== END 2022-03-11 13:00 ==
LOC: EUO 07:32
DX: G61.81 Chronic inflammatory demyelinating polyneuritis (principal)
CPT/HCPCS: J1200; J1569; J2930

== ENCOUNTER 2022-04-08 08:18 | Outpatient (CLI) | payer MEDICARE, BC ==
[~2022-04-08] VITALS: Ht 160 cm; Wt 60.0 kg
[2022-04-08] VITALS (10 sets, daily range): BP systolic 108–153; BP diastolic 40–86; PULSE 57–69; TEMP 97.7
== END 2022-04-08 13:48 ==
LOC: EUO 08:18
DX: G61.81 Chronic inflammatory demyelinating polyneuritis (principal)
CPT/HCPCS: J1569; J2930

== ENCOUNTER 2022-08-15 04:50 | Emergency (ER) | payer MEDICARE, BC ==
[~2022-08-15] VITALS: Ht 165.1 cm; Wt 72.7 kg
[~2022-08-15 04:50] MED LIST changes: +LASIX 40MG TABL40 MG PO; +RISPERDAL 0.5M0.5 MG PO
[2022-08-15 06:28] VITALS: BP 149/65; PULSE 70; TEMP 97.5
== END 2022-08-15 06:32 | disposition home or self-care (01) ==
LOC: COL.ER 04:50
DX: S09.90XA Unspecified injury of head, initial encounter (principal); S51.012A Laceration without foreign body of left elbow, initial encounter; S00.03XA Contusion of scalp, initial encounter; W18.30XA Fall on same level, unspecified, initial encounter; W22.8XXA Striking against or struck by other objects, initial encounter